=== PATIENT | female | born 1965 | race Caucasian/White ===

== ENCOUNTER → 2024-07-02 | Day surgery (SDC) | payer OTHER, BC, SELFPAY ==
--- NOTE | 2024-06-30 07:02 | EKG_ITS ---
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 [facility] : 1965 Requested By: Ga Lorenzo Order Number: [id number] Reading MD: Ga Lorenzo Measurements Intervals Freeman Rate: 65 P: 47 HI: 165 QRS: -7 QRSD: 89 T: 41 QT: 413 QTc: 432 Interpretive Statements SINUS RHYTHM POSSIBLE LEFT ATRIAL ENLARGEMENT [-0.1mV P WAVE IN V1/V2] LOW QRS VOLTAGE IN PRECORDIAL LEADS [QRS DEFLECTION < 1.0 mV IN CHEST LEADS] No previous ECG available for comparison /[id number]
[2024-06-30 10:00] VITALS: BMI 25.5
[2024-06-30 11:59] LABS: Alanine Aminotransferase 16 U/L (10-49); Albumin, Serum 4.7 gm/dL (3.5-5.0); Albumin/Globulin Ratio 1.6 (1.2-2.2); Alkaline Phosphatase 51 U/L (46-116); Anion Gap 11 (7-16); Aspartate Amino Transferase 22 U/L (0-34); BUN/Creatinine Ratio 20 Ratio (12-20); Bilirubin,Total 0.5 mg/dL (0.3-1.2); Blood Urea Nitrogen 16 mg/dL (9-23); Calcium 9.5 mg/dL (8.3-10.6); Calcium (Corrected) 9.5 mg/dL (8.5-10.1); Carbon Dioxide 25.8 mMol/L (20.0-31.0); Chloride 102 mMol/L (98-107); Creatinine (Component) 0.8 mg/dL (0.6-1.3); Estimated Creatinine Clearance 68.9 mL/min (>60); Glucose 94 mg/dL (74-106); Osmolality,Calculated 278 (275-295); Potassium 3.8 mMol/L (3.4-5.1); Sodium 139 mMol/L (136-145); Total Protein 7.7 gm/dL (5.7-8.2); eGFR > 60 See Note
[2024-07-01] VITALS (7 sets, daily range): BP systolic 102–151; BP diastolic 75–89; PULSE 70–81; RESP 14–24; TEMP 36.2–36.4; O2SAT 96–100; BMI 25.2
[2024-07-01] MEDS: RINGERS LACTATED 1000 ML 1,000 ML 20 ML IV (12:42)
[2024-07-01] MEDS: OXYMETAZOLINE NAS SPRY 0.05% 15 ML BTL NASAL (13:00)
--- NOTE | 2024-07-01 14:45 | SUR.PHASEI ---
pt arrived to PACU via gurney drowsy but arouses to voice, breathing unlabored, nasal bridal clean, dry, and intact, report from Anuj DURAN, Chiara FARLEY, and Dr Stephen
--- NOTE | 2024-07-01 14:50 | ESOP_ITS ---
Date of Procedure 07/01/24 Pre Op Diagnosis Nasal septal deviation with obstruction Bilateral chronic sphenoid sinusitis Chronic left frontal sinusitis Bilateral inferior turbinate hypertrophy Chronic left eustachian tube dysfunction Post Op Diagnosis Nasal septal deviation with obstruction Bilateral chronic sphenoid sinusitis Chronic left frontal sinusitis Bilateral inferior turbinate hypertrophy Chronic left eustachian tube dysfunction Procedure Intranasal septoplasty Bilateral balloon dilation of sphenoid sinus endoscopically Left endoscopic balloon dilation of frontal sinus Bilateral submucous resection of the inferior turbinates Left myringotomy with insertion of Dura-Vent type tympanostomy tube Findings Left eardrum is normal in appearance as was the canal. Nasal septum was severely deviated to the left side posteriorly with a large bony spur. Inferior turbinates were enlarged. Nasal mucosa had mild inflammation with clear drainage. Procedure Description Indications for procedure this is a 59-year-old female with chronic sinusitis and nasal congestion as well as left eustachian tube dysfunction. Treatment options were discussed as well as surgical risks including perforation bleeding infection nasal deformity and potential need for further surgery. She understood this and wished to proceed. Patient was transferred to the operative suite where she was draped first for the left ear. Timeout was performed. Under microscopic visualization the left ear is visualized and a radial incision made inferiorly. Dura-Vent type tympanostomy tube was then inserted. There is a small tympanosclerotic plaque anterior to the tympanostomy site. The patient was then redraped and the nasal septum was injected with 1% l idocaine with 1 100,000 Mitul epinephrine as were the inferior turbinates. Approximately 5 cc total were used. A caudal rim incision was made on the left side of the septum and the mucosal flap was elevated off the septal cartilage and bone on the left side. In doing so there was a tear created anteriorly but it did not extend posteriorly and there was no opposing tear on the opposite side. Dissection was carried back in perpendicular plate was from the quadrangular cartilage and mucosal flap elevated off of both sides of the perpendicular plate. Perri forceps were used to remove the deviated perpendicular plate. This was further inspected with the 0 degree scope and there is still small amount of spurring left posteriorly and this was removed as well. Under endoscopic visualization the Genet balloon dilator was carefully inserted up into the frontal ethmoid recess and guided up into the frontal sinuses confirmed with the fiberoptic probe. Balloon was advanced over the end of the tip and inflated and then deflated. It was advanced slightly further and inflated and deflated again. This was then removed. The guide was then reshaped for the sphenoid sinus left sphenoidotomy was performed again under endoscopic visualization after locating the ostia the balloon was inserted into the ostia and inflated and deflated. A similar procedure was then performed on the right side. Inferior turbinates were then reduced in a submucosal plane with a 2.9 mm turbinate shaver blade. Shaver was inserted first on the left side dissection was performed on insertion and withdrawal. Neuro pledget soaked with Afrin was placed over the entry site and a similar procedure performed on the right side. The entry sites were then cauterized with suction cautery. The mucosal flaps were reapproximated to the underlying septal cartilage with a 4-0 plain gut suture in a quilting type stitch. This was used to close the rim incision as well. Patient was awakened and taken to the recovery room in stable condition Anesthesia other (General Per LMA) Pathology / specimen None Estimated Blood Loss 15 Surgeon Ga Persaud DO Surgical Staff Operation Date: 07/01/24 14:00 Case Staff Anesthesiologist: Stewart Stephen
--- NOTE | 2024-07-01 15:09 | SUR.PHASEI ---
pt tolerating ice chips without difficulty swallowing or n/v
--- NOTE | 2024-07-01 15:45 | SUR.PHASEII ---
pt awake, alert, able to follow commands, breathing unlabored, nasal bridal clean, dry, and intact, discharge instructions given with spouse present, all questions answered, pt able to dress self and ambulate with steady gait, pt discharged via wheelchair with all belongings and copies of discharge paperwork.
== END | disposition home or self-care (01) ==
LOC: S2EX 04:00
PROVIDERS: PCP Nurse Practitioner Family; Referring Provider Otolaryngology; Visit Provider Otolaryngology
PROC: (CPT 30520; principal; 2024-07-01 13:45)
PROC: (CPT 69420; 2024-07-01 13:45)
DX: J34.2 Deviated nasal septum (principal); J34.3 Hypertrophy of nasal turbinates; J32.1 Chronic frontal sinusitis; J32.3 Chronic sphenoidal sinusitis; H69.92 Unspecified Eustachian tube disorder, left ear
CPT/HCPCS: 69436; 30140; 30520; 31298; 36415; 80053; 93005; A4217; A4649; J0131; J0690; J1100; J2704; J2765; J3010; J3490; J7040; J7120; A9270